=== PATIENT | male | born 1950 | race Caucasian/White ===

== ENCOUNTER → 2022-05-03 10:38 | Outpatient (CLI) | payer MEDICARE, SELFPAY ==
--- NOTE | 2022-05-08 10:39 | PM.PFT.1 ---
Pulmonary Function Test Referral & Results Date Patient Seen: 05/03/22 Requesting provider: William Swartz Results: The spirometry demonstrates an FVC of 3.40 L which is 72% of predicted. The FEV1 was measured at 1.74 L which is 51% of predicted. The FEV1/FVC ratio was 51 which is 70% of predicted. Following the administration of bronchodilator there was a 42% improvement in FEF 25-75%. Lung volumes show an SVC of 3.53 L which is 73% of predicted. The diffusing capacity was measured at 21.63 which is 61% of predicted. No hemoglobin value was provided, so no correction for potential anemia could be made, if appropriate. The maximum voluntary ventilation was reduced Interpretation: This study demonstrates moderate obstructive lung disease based on reduction FEV1 and FEV1/FVC ratio. There is evidence of benefit in small airway flow post bronchodilator based on improvement in FEF 25-75% There is a mild reduction in lung volumes suggesting the presence of mild restrictive lung disease There is also [id number] reduction diffusing capacity suggesting disease at the capillary alveolar level Clinical correlation suggested
== END ==
PROVIDERS: PCP Student in an Organized Health Care Education/Training Program; Referring Provider Student in an Organized Health Care Education/Training Program; Visit Provider Student in an Organized Health Care Education/Training Program
DX: R06.09 Other forms of dyspnea (principal); Z87.891 Personal history of nicotine dependence; Z20.822 Contact with and (suspected) exposure to COVID-19; J98.8 Other specified respiratory disorders
CPT/HCPCS: 87635; 94060; 94726; 94729; C9803

== ENCOUNTER → 2022-05-03 10:58 | Outpatient (CLI) | payer MEDICARE, SELFPAY ==
[2022-05-03 12:38] LABS: COVID19 -Nasal RAPID Negative (Negative)
== END ==
PROVIDERS: PCP Student in an Organized Health Care Education/Training Program; Referring Provider Internal Medicine; Visit Provider Internal Medicine
DX: Z20.822 Contact with and (suspected) exposure to COVID-19 (principal)
CPT/HCPCS: 87635; C9803

== ENCOUNTER → 2022-07-16 09:37 | Outpatient (CLI) | payer MEDICARE, SELFPAY ==
--- NOTE | 2022-07-16 18:34 | DI.NM.S_ITS ---
DATE OF SERVICE: 07/16/2022 PROCEDURE PERFORMED: Pharmacologic stress and rest myocardial perfusion study with gating to assess ejection fraction and regional wall motion. ORDERING PROVIDER: Dr. Catracho Cross. INDICATIONS: The patient is a 72-year-old male with a history of PCI to the RCA and LAD, who presents with atypical chest discomfort. CARDIAC STRESS: Per protocol, 0.4 mg of regadenoson was infused with a normal hemodynamic response. He had minimal dyspnea but no chest discomfort. His resting ECG shows sinus rhythm with normal ST segments and there are no ST- segment shifts or arrhythmias with stress. Per protocol, 25.2 millicuries of technetium-99m Myoview was injected and he was imaged 10 minutes later using a gated SPECT acquisition protocol. Earlier in the day while at rest, he had been injected with 12.0 millicuries of technetium-99m Myoview and was imaged 15 minutes later, again using a gated SPECT acquisition protocol. FINDINGS: 1. Raw data: There is fair myocardial tracer uptake although the resting images are of fairly poor quality and there appears to be some evidence for diaphragmatic attenuation. He was unable to lay prone to assess for diaphragmatic attenuation. The lung/heart ratio was normal at 0.31 with a normal TID ratio of 0.91. 2. Quantitated gated SPECT: Post-stress ejection fraction is estimated at 82% without any obvious focal wall motion abnormality although there may be mild hypokinesis in the proximal inferior wall. The resting gated images are of fairly poor quality but generally appear unchanged from the stress images with an estimated ejection fraction of 75% with a normal resting end-diastolic volume of 99 mL. 3. Myocardial perfusion imaging: Post-stress supine images shows a moderate to severe perfusion defect in the inferior wall, worse at the base, but no other perfusion defects. There are no prone images to assess for attenuation artifact. The resting images show a very similar perfusion pattern although with a slightly more profound defect in the inferior wall but no any areas of improvement. IMPRESSION: 1. Probable abnormal myocardial perfusion study. 2. Moderate-severe fixed inferior perfusion defect that likely reflects previous myocardial infarction although diaphragmatic attenuation cannot be entirely excluded, yet the defect appears to be more profound than that normally seen for an attenuation artifact and a possible inferior wall motion abnormality would support a probable previous infarct. There is no evidence for any significant myocardial ischemia. 3. Normal left ventricular systolic function, although with possible hypokinesis at the base of the inferior wall. 4. No angina or ECG evidence of ischemia with pharmacologic vasodilator stress. He had rare PVCs, but no other arrhythmias. William Tsai - SRIDHAR/lisa/benjamin doc#: [id number]/job#: [id number] dd: 07/16/2022 17:14:00 dt: 07/16/2022 18:23:00 DICTATING /COPIES TO: Joni Singh MD COPIES MNE: GILBERT;
== END ==
PROVIDERS: PCP Student in an Organized Health Care Education/Training Program; Referring Provider Internal Medicine Cardiovascular Disease; Visit Provider Internal Medicine Cardiovascular Disease
DX: R94.31 Abnormal electrocardiogram [ECG] [EKG] (principal); I25.84 Coronary atherosclerosis due to calcified coronary lesion; G93.39 Other post infection and related fatigue syndromes; R07.89 Other chest pain; R06.09 Other forms of dyspnea; Z95.5 Presence of coronary angioplasty implant and graft
CPT/HCPCS: 78452; 93017; A9502; J2785

== ENCOUNTER 2024-10-05 10:03 | Emergency (ER) | payer MEDICARE, SELFPAY ==
[2024-10-05] VITALS (10 sets, daily range): BP systolic 127–153; BP diastolic 56–95; PULSE 70–82; RESP 17–23; TEMP 36.4; O2SAT 93–98; BMI 29.8
--- NOTE | 2024-10-05 10:17 | EKG_ITS ---
[id number] [address] Test Date: 2024-10-05 Pat Name: William Tsai Department: Room: Gender: Male [employer] Delivery: SHAYNA : 1950 Requested By: Order Number: [id number] Reading MD: Jack Prieto MD Measurements Intervals [place] Rate: 71 P: NH: 170 QRS: 44 QRSD: 94 T: 50 QT: 374 QTc: 406 Interpretive Statements Sinus rhythm with frequent premature ventricular complexes Electronically Signed On 10-05-2024 10:52:16 PDT by Jack Prieto MD
--- NOTE | 2024-10-05 10:26 | ED_ITS ---
HPI - Recheck/Abnormal Lab/Rx General Chief Complaint: Recheck/Abnormal Lab/Rx Stated Complaint: Check fluids around his heart Time Seen by Provider: 10/05/24 10:13 Source: patient Mode of arrival: Ambulatory History of Present Illness HPI narrative: Patient here for chest pain neck pain back pain shortness of breath off and on for the past 10 days. Patient states symptoms started 10 days ago and was constant waxing and waning on that day. He was seen at the walk-in clinic/urgent care on [address] with [facility]. He had CT angiogram chest abdomen pelvis EKG blood work done and was discharged with instructions to follow up today for urgent echocardiogram. He was informed he had a pericardial effusion. He did follow up the instructions and could not get an echocardiogram today. His primary care converse with his counter sales representative, Dr. Kahn with [facility], and was informed from Dr. Kahn he did not need an urgent echocardiogram until this . Patient comes here for echocardiogram. He has no complaints at this time. He has been symptom-free since this past Friday, 2 days ago. He denies any history of heart attack or coronary disease and is uncertain why he has seen Dr. Kahn in the past. Related Data Allergies Allergy/AdvReac Type Severity Reaction Status Date / Time No Known Drug Allergies Allergy Verified 10/05/24 10:23 Review of Systems Review of Systems Narrative: GENERAL: Negative chills, fatigue, malaise, fever, sweats. HEENT: Negative sinus pain, ear pain, sore throat RESPIRATORY: Negative dyspnea, cough CARDIOVASCULAR: Positive chest pain, negative palpitations GASTROINTESTINAL: Negative vomiting, nausea, abdominal pain : Negative dysuria, frequency, hematuria MUSCULOSKELETAL: Negative muscle or bony pain SKIN: Negative rash, skin lesions NEUROLOGIC: Negative weakness, numbness ROS Unobtainable: All systems reviewed & are unremarkable except as noted in HPI and below Patient History Social History Smoking Status: Never smoker Smoking Status: Never smoker Exam Narrative Exam Narrative: GENERAL: in no distress, not toxic not dyspneic HEAD: Normocephalic. EYES: Pupils equal round ENT: Mucous membranes moist. NECK: Trachea midline. No midline shift. CARDIOVASCULAR: Regular rate and rhythm no murmur no distant heart sounds no friction rub RESPIRATORY: Clear to auscultation. Breath sounds equal bilaterally. No wheezes, rales, or rhonchi. Chest nontender GASTROINTESTINAL: Abdomen soft, non-tender EXTREMITIES: No gross deformities. BACK: No flank tenderness. NEURO: AOx4. Clear speech SKIN: Warm and dry PSYCH: Not anxious, is cooperative Initial Vital Signs Initial Vital Signs: Vital Signs Pulse Rate 73 10/05/24 10:16 Pulse Oximetry 97 10/05/24 10:16 Course Orders Ordered: ED Orders 10/05/24 10:25 XR chest 1V Stat EKG-12 Lead Stat 10/05/24 10:26 EC echo doppler complete Stat 10/05/24 10:34 Complete Blood Count AUTO DIFF Stat Comprehensive Metabolic Panel Stat NT-proBNP (BNP-Adult 18+) Stat PTT Partial Thromboplastin Luca Stat Prothrombin Time INR Stat Troponin & CK Cardiac Panel Stat Vital Signs Vital signs: Vital Signs - 8 hr 10/05/24 10:16 10/05/24 10:18 10/05/24 10:30 Temperature 97.5 F L Pulse Rate 73 74 74 Respiratory Rate 18 20 Blood Pressure 153/78 H Pulse Oximetry 97 98 97 Oxygen Delivery Method Room Air 10/05/24 10:34 10/05/24 10:34 10/05/24 11:00 Temperature Pulse Rate 74 70 Respiratory Rate 19 17 Blood Pressure 136/95 H Pulse Oximetry 97 94 Oxygen Delivery Method 10/05/24 11:01 10/05/24 11:01 10/05/24 11:30 Temperature Pulse Rate 71 77 Respiratory Rate 17 19 Blood Pressure 127/56 L Pulse Oximetry 94 94 Oxygen Delivery Method 10/05/24 11:32 10/05/24 11:32 10/05/24 12:00 Temperature Pulse Rate 80 82 Respiratory Rate 20 23 Blood Pressure 139/63 Pulse Oximetry 94 93 Oxygen Delivery Method 10/05/24 12:24 10/05/24 12:24 Temperature Pulse Rate 82 Respiratory Rate 22 Blood Pressure 141/65 H Pulse Oximetry Oxygen Delivery Method MDM - Recheck/Abnormal Lab/Rx Lab Data 10/05/24 10:34 10/05/24 10:34 Labs: Lab Results 10/05/24 Range/Units 10:34 WBC 6.6 (4.5-11.0) X10^3/uL RBC 4.37 L (4.5-5.9) X10^6/uL Hgb 13.5 (13.5-17.5) g/dL Hct 40.1 L (41-53) % MCV 91.7 (80-100) fL MCH 31.0 (26-34) PG MCHC 33.8 (30-36) % RDW 13.4 (11.6-14.8) % Plt Count 217 (150-400) X10^3/uL Neut % (Auto) 70.7 (50-75) % Lymph % (Auto) 17.6 L (25-40) % Logan % (Auto) 9.3 (3-14) % Eos % (Auto) 1.7 L (2-4) % Baso % (Auto) 0.7 (0-2) % Neut # (Auto) 4700 (7116-7941) /uL Lymph # (Auto) 1200 (7766-8991) /uL Logan # (Auto) 600 (0-900) /uL Eos # (Auto) 100 (0-450) /uL Baso # (Auto) 0 (0-100) /uL PT 13.1 H (9.4-12.5) SECONDS INR 1.2 (0.9-1.3) APTT 30 (25.1-36.5) SECONDS Sodium 139 (137-145) mmol/L Potassium 4.3 (3.4-5.1) mmol/L Chloride 109 H (98-107) mmol/L Carbon Dioxide 24 (22-32) mmol/L BUN 14 (9-20) mg/dL Creatinine 0.72 (0.66-1.25) mg/dL Estimated GFR > 60 (>60) mL/min BUN/Creatinine Ratio 19.4 (6-22) Glucose 120 H (70-99) mg/dL Calcium 9.7 (8.4-10.2) mg/dL Total Bilirubin 0.5 (0.2-1.3) mg/dL AST 23 (17-59) IU/L ALT 24 (<50) IU/L Alkaline Phosphatase 46 (38-126) U/L Total Creatine Kinase 26 L (55-170) U/L Troponin I < 0.012 (0.01-0.034) ng/mL NT-Pro-B Natriuret Pep 1060 H (<450) pg/mL Total Protein 6.4 (6.3-8.2) g/dL Albumin 3.7 (3.5-5.0) g/dL Globulin 2.7 (1.7-4.1) g/dL Albumin/Globulin Ratio 1.4 (1.0-2.8) Imaging Data Chest x-ray: Radiologist's Impression: [address] [address] XRay Report Signed Patient: William Reilly MR#: [id number] : 1950 Acct:[id number] Age/Sex: 74 / M Date of Service: 10/05/24 Loc: ED Accession Number: [id number] Procedure: XR chest 1V Ordering Provider: Kindra Mckinley MD PROCEDURE: XR CHEST 1V INDICATIONS: chest pain TECHNIQUE: One view of the chest was acquired. COMPARISON: None. FINDINGS: Surgical changes and devices: None. Lungs and pleura: Trace blunting of the costophrenic angles. No pleural effusions or pneumothorax. Mediastinum: Mediastinal contours appear normal. Heart size is normal. Bones and chest wall: No suspicious bony lesions. Overlying soft tissues appear unremarkable. IMPRESSION: Trace blunting of the costophrenic angles, which could be scarring vs minimal effusions. Dictated by: Janet Werner M.D. on 10/05/2024 at 10:58 Approved by: Janet Werner M.D. on 10/05/2024 at 10:58 Echocardiogram: Radiologist's Impression: [address] [address] Echocardiography Report Signed Patient: William Reilly MR#: [id number] : 1950 Acct:[id number] Age/Sex: 74 / M Date of Service: 10/05/24 Loc: ED Accession Number: [id number] Procedure: EC echo doppler complete Ordering Provider: Kindra Mckinley MD [place] +---------+ [facility] : : [address] [place] [address]. : : [place], [place] : : [address] : : Phone: [phone] Echocardiogram Report + + :Name: WILLIAM REILLY Study Date: 10/05/2024 Height: 72 in : :[facility] ReadingLocation: Weight: 220 lb : : Gender: Male BSA: 2.2 m2 : :: 1950 Age: 74 yrs BP: 136/95 mmHg: :Reason For Study: CHEST PAIN/ SHORTNESS OF BREATH : :Ordering Physician: ARLEN : :KINDRA Performed By: Veronica Ibarra : :Referring: KINDRA MCKINLEY : + + Interpretation Summary 1) Normal left ventricular thickness and size with mildly reduced systolic function (EF 45-50%). 2) Normal right ventricular size and function. 3) No significant valvular abnormalities. 4) There is no pericardial effusion. 5) No prior Echo available for comparison. Procedure: A two-dimensional transthoracic echocardiogram with color flow and Doppler was performed. The study quality was technically adequate. There is no prior echocardiogram noted for this patient. The patient had frequent PVCs during the exam. The patient was in sinus rhythm with heart rates between 64-84 bpm during the exam. Left Ventricle: The left ventricle is normal in size and wall thickness. The ejection fraction is estimated to be 45-50%. There is mild global hypokinesis of the left ventricle. Diastolic parameters suggest a relaxation abnormality of the left ventricle, consistent with probable normal filling pressures. Right Ventricle: The right ventricle is normal in size and function. Atria: The left atrium is moderately dilated. Right atrial size is normal. There is no Doppler evidence for an interatrial shunt. Mitral Valve: The mitral valve leaflets appear to open well. There is no mitral regurgitation noted. Aortic Valve: The aortic valve opens well. There is no aortic valve stenosis. No aortic regurgitation is present. Tricuspid Valve: The tricuspid valve leaflets are thin and pliable. There is a trace or physiologic amount of tricuspid regurgitation. Pulmonary artery pressures cannot be estimated because of the lack of a measurable TR jet velocity but the IVC suggests a CVP of around 3 mmHg. Pulmonic Valve: The pulmonic valve leaflets are thin and pliable; valve motion is normal. There is trace pulmonic regurgitation. Great Vessels: The aortic root is borderline dilated. The ascending aorta is at the upper limits of normal in size. The IVC is of normal diameter and collapses greater than 50% with a sniff. This suggests a low right atrial pressure of 3 mm Hg. Pericardium/ Pleura There is no pericardial effusion. There is no pleural effusion. MMode/2D Measurements & Calculations LVIDd: 4.8 cm LVOT diam: 2.5 cm LVIDs: 3.3 cm Ao root diam: 4.2 cm FS: 30.8 % asc Aorta Diam: 3.9 cm IVSd: 1.0 cm Ao Arch Diam (Prox Trans): 3.2 cm LVPWd: 0.94 cm LV anna. diameter/BSA (cm/m^2): 2.2 LV sys. diameter/BSA (cm/m^2): 1.5 LA A2 area: 25.8 cm2 RA long axis: 6.3 cm LA A4 area: 23.1 cm2 RA area: 22.9 cm2 LA length (vol): 6.3 cm RA vol: 70.1 ml LA vol: 79.8 ml RA : 31.6 ml/m2 LA vol index: 36.0 ml/m2 IVC diam: 1.9 cm RVD1 (basal): 3.9 cm RVD2 (mid): 2.9 cm TAPSE: 2.0 cm Doppler Measurements & Calculations Ao V2 max: 107.1 cm/sec LVOT Max Feliberto: 85.9 cm/sec Ao V2 mean: 73.1 cm/sec LV V1 max P.9 mmHg Ao max P.6 mmHg LV V1 VTI: 16.5 cm Ao mean P.4 mmHg MAVIS(I,D): 3.7 cm2 Ao V2 VTI: 22.0 cm MAVIS(V,D): 3.9 cm2 sev ratio: 0.75 MAVIS indexed to BSA (cm^2/m^2): 1.6 MV E max feliberto: 79.4 cm/sec PA V2 max: 80.7 cm/sec MV A max feliberto: 74.9 cm/sec PA V2 mean: 57.1 cm/sec MV E/A: 1.1 PA mean P.4 mmHg Med Peak E' Feliberto: 9.6 cm/sec PA pr(Accel): 21.2 mmHg E/E' med: 8.3 Lat Peak E' Feliberto: 9.3 cm/sec E/E' lat: 8.6 E/e' average: 8.4 MV dec time: 0.19 sec SV(LVOT): 80.4 ml Reading Physician:11:52 AM [facility] Narrative Medical decision making narrative: Patient here for chest pain neck pain back pain shortness of breath off and on for the past 10 days. Patient states symptoms started 10 days ago and was constant waxing and waning on that day. He was seen at the walk-in clinic/urgent care on [address] with [facility]. He had CT angiogram chest abdomen pelvis EKG blood work done and was discharged with instructions to follow up today for urgent echocardiogram. He was informed he had a pericardial effusion. He did follow up the instructions and could not get an echocardiogram today. His primary care converse with his counter sales representative, Dr. Kahn with [facility], and was informed from Dr. Kahn he did not need an urgent echocardiogram until this . Patient comes here for echocardiogram. He has no complaints at this time. He has been symptom-free since this past Friday, 2 days ago. He denies any history of heart attack or coronary disease and is uncertain why he has seen Dr. Kahn in the past. After history and exam, CBC CMP troponin BNP chest x-ray EKG echocardiogram, Cardiology consult with [facility] Medical records reviewed: I did review patient's clinic visit with CT angiogram September 29, 2024. Trace pericardial effusion seen on CT imaging. Differential considered: Includes but not limited to STEMI non-STEMI heart valve disease aortic regurgitation aortic stenosis pericardial effusion Lab Test results independently reviewed as above. Pertinent findings: WBC 6.6 hemoglobin 13.5 sodium 139 potassium 4.3 GFR greater than 60 troponin less than 0.012 BNP 1060 Independently reviewed EKG sinus rhythm rate [address] elevation or depression Imaging studies independently reviewed: Chest x-ray no acute finding, echocardiogram ejection fraction 45%/50% Consultations: 11:[address] Caputo, cardiology, who read the echocardiogram. No pericardial effusion. Ejection fraction 45- 50% 12:15 p.m.. I spoke with patient's cardiology services, Dr. Ricardo, he is on- call for [facility] Cardiology with Dr. Kahn. We have reviewed results. Patient does not need to be admitted or transferred. Patient can be discharged home and follow up with primary care or Dr. Kahn. Re-evaluations: 10:35 a.m.. Patient now recalls he had a couple of heart stents placed 15 years ago and that is why he sees Dr. Kahn, cardiology services. 12:22 p.m.. Updated patient results and my discussion with cardiology services. He remains chest pain-free and symptom-free. He agrees with treatment plan. He is pleased with the results. He desires discharge home. Return precautions reviewed with him. Discussion: Appropriate for discharge home. Exam and laboratory studies are reassuring. Echocardiogram reassuring. Diagnosis: Chest pain Discharge Plan Departure Patient Disposition: Home Clinical Impression: Chest pain Qualifiers: Chest pain type: unspecified Qualified Code(s): R07.9 - Chest pain, unspecified Instructions: DI for Chest Pain Activity Restrictions/Additional Instructions: Your results are reassuring today. Cardiology service was contacted. Please follow up with your counter sales representative and your family doctor this week. Continue home medications. Return if worse if any questions or concerns. Referrals: William Swartz MD [Primary Care Provider] - Stand Alone Forms: Patient Portal/API/Survey
[2024-10-05 10:40] LABS: Add Manual Diff / Slide Review NO; Basophils Absolute Auto 0 /uL (0-100); Basophils Percent Auto 0.7 % (0-2); Eosinophils Absolute Auto 100 /uL (0-450); Eosinophils Percent Auto 1.7 % (2-4); Hematocrit 40.1 % (41-53); Hemoglobin 13.5 g/dL (13.5-17.5); Lymphocytes Absolute Auto 1200 /uL (1100-4500); Lymphocytes Percent Auto 17.6 % (25-40); Mean Corpuscular HGB Conc 33.8 % (30-36); Mean Corpuscular Volume 91.7 fL (80-100); Monocytes Absolute Auto 600 /uL (0-900); Monocytes Percent Auto 9.3 % (3-14); Neutrophils Absolute Auto 4700 /uL (1500-7000); Neutrophils Percent Auto 70.7 % (50-75); Platelet Count 217 X10^3/uL (150-400); Red Blood Cell Count 4.37 X10^6/uL (4.5-5.9); Red Cell Distribution Width 13.4 % (11.6-14.8); White Blood Cell Count 6.6 X10^3/uL (4.5-11.0)
[2024-10-05 10:47] LABS: INR 1.2 (0.9-1.3); Prothrombin Time 13.1 SECONDS (9.4-12.5)
[2024-10-05 10:50] LABS: PTT Partial Thromboplastin Tim 30 SECONDS (25.1-36.5)
[2024-10-05 11:02] LABS: Alanine Aminotransferase 24 IU/L (<50); Albumin 3.7 g/dL (3.5-5.0); Albumin Globulin Ratio 1.4 (1.0-2.8); Alkaline Phosphatase 46 U/L (38-126); Aspartate Aminotransferase 23 IU/L (17-59); BUN Creatinine Ratio 19.4 (6-22); Bilirubin Total 0.5 mg/dL (0.2-1.3); Blood Urea Nitrogen 14 mg/dL (9-20); Calcium 9.7 mg/dL (8.4-10.2); Carbon Dioxide 24 mmol/L (22-32); Chloride 109 mmol/L (98-107); Estimated Glomerular Filt Rate > 60 mL/min (>60); Globulin 2.7 g/dL (1.7-4.1); Glucose 120 mg/dL (70-99); HEMOLYSIS 22 (0-50); Potassium 4.3 mmol/L (3.4-5.1); Sodium 139 mmol/L (137-145); Total Protein 6.4 g/dL (6.3-8.2)
[2024-10-05 11:03] LABS: NT-proBNP (BNP-Adult 18+) 1060 pg/mL (<450); Troponin I < 0.012 ng/mL (0.01-0.034)
[2024-10-05 11:50] LABS: Creatine Kinase 26 U/L (55-170)
== END 2024-10-05 12:28 | disposition home or self-care (01) ==
PROVIDERS: Emergency Provider Emergency Medicine; PCP Student in an Organized Health Care Education/Training Program
DX: R07.9 Chest pain, unspecified (principal); M54.2 Cervicalgia; R06.02 Shortness of breath
CPT/HCPCS: 36415; 71045; 80053; 82550; 83880; 84484; 85025; 85610; 85730; 93005; 93010; 93306; 99283; 99284